=== PATIENT | male | born 1975 ===

== ENCOUNTER 2021-08-08 19:43 | Emergency (ER) | payer SELFPAY ==
--- NOTE | 2021-08-08 20:24 | Emergency Department Report ---
HPI - General Chief Complaint: Alcohol Time Seen by Provider: 08/08/21 20:11 - HPI HPI: Room 40 The patient is a 46-year-old male present with a chief complaint of alcohol intoxication. The patient lives in [place] and states he [place] the airport [place] flight when he was refused entry secondary to being intoxicated. Patient was subsequently brought to the ED. Patient denies any physical complaints but just states that he misplaced his glasses. ED Past Medical Hx - Past Medical History Previous Medical History?: No - Surgical History Additional Surgical History: Right shoulder - Family History Family history: no significant - Social History Smoking Status: Never Smoker Substance Use Type: None (Denies illicit drug use), Alcohol (4 drinks daily) ED Review of Systems ROS: Stated complaint: ETOH Other details as noted in HPI Constitutional: no symptoms reported Eyes: denies: eye pain ENT: denies: throat pain Respiratory: no symptoms reported Cardiovascular: denies: chest pain Endocrine: no symptoms reported Gastrointestinal: denies: abdominal pain Genitourinary: denies: dysuria Musculoskeletal: denies: back pain Neurological: denies: headache Physical Exam - Physical Exam Physical Exam: GENERAL: The patient is well-developed well-nourished male lying on stretcher not appearing to be in acute distress. [] HEENT: Normocephalic. Atraumatic. Extraocular motions are intact. Patient has moist mucous membranes. NECK: Supple. Trachea midline CHEST/LUNGS: Clear to auscultation. There is no respiratory distress noted. HEART/CARDIOVASCULAR: Regular. There is no tachycardia. There is no gallop rub or murmur. ABDOMEN: Abdomen is soft, nontender. Patient has normal bowel sounds. There is no abdominal distention. SKIN: There is no rash. There is no edema. There is no diaphoresis. NEURO: The patient is awake, alert, and oriented. The patient is cooperative. The patient has no focal neurologic deficits. The patient has normal speech. GCS 15 MUSCULOSKELETAL: There is no evidence of acute injury. ED Medical Decision Making - Lab Data Result diagrams: 08/08/21 20:27 08/08/21 20:27 Laboratory Tests 08/08/21 08/08/21 08/08/21 20:27 20:27 20:27 WBC 5.2 RBC 5.34 H Hgb 17.0 H Hct 50.2 H MCV 94 MCH 32 MCHC 34 RDW 15.8 H Plt Count 111 L Lymph % (Auto) 27.3 [place] % (Auto) 8.3 H Eos % (Auto) 0.3 Baso % (Auto) 1.0 Lymph # (Auto) 1.4 [place] # (Auto) 0.4 Eos # (Auto) 0.0 Baso # (Auto) 0.1 Seg Neutrophils % 63.1 Seg Neutrophils # 3.3 Sodium 141 Potassium 3.9 Chloride 97.1 L Carbon Dioxide 26 Anion Gap 22 BUN 6 L Creatinine 1.1 Estimated GFR > 60 BUN/Creatinine Ratio 5 Glucose 137 H Calcium 8.7 Plasma/Serum Alcohol 0.51 H - Differential Diagnosis Alcohol intoxication Critical care attestation.: If time is entered above; I have spent that time in minutes in the direct care of this critically ill patient, excluding procedure time. ED Disposition Clinical Impression: Alcohol abuse Disposition: 07 LEFT AGAINST MEDICAL ADVICE Is pt being admited?: No Does the pt Need Aspirin: No Condition: Stable Referrals: PRIMARY CARE, [Primary Care Provider] - 3-5 Days
[2021-08-08 20:47] LABS: Basophils # (Auto) 0.1 K/mm3 (0.0-0.1); Eosinophils % (Auto) 0.3 % (0.0-4.3); Hematocrit 50.2 % (35.5-45.6); Lymphocytes # (Auto) 1.4 K/mm3 (1.2-5.4); Lymphocytes % (Auto) 27.3 % (13.4-35.0); Mean Corpuscular HGB Conc 34 % (32-34); Mean Corpuscular Volume 94 fl (84-94); Monocytes # (Auto) 0.4 K/mm3 (0.0-0.8); Monocytes % (Auto) 8.3 % (0.0-7.3); Platelet Count 111 K/mm3 (140-440); Red Blood Count 5.34 M/mm3 (3.65-5.03); Red Cell Distribution Width 15.8 % (13.2-15.2)
[2021-08-08] MEDS ORDERED: MAGNESIUM SULFATE 2 GM/50 ML BAG IV ONE (20:51)
[2021-08-08] MEDS ORDERED: SODIUM CHLORIDE 0.9% 1000 ML 1,000 ML IV ONE (20:52)
[2021-08-08 21:06] LABS: BUN/Creatinine Ratio 5; Blood Urea Nitrogen 6 mg/dL (9-20); Calcium 8.7 mg/dL (8.4-10.2); Hemolysis Index 9
[2021-08-08] MEDS ORDERED: THIAMINE 100 MG, FOLIC ACID 1 MG, MULTIPLE VITAMIN INJ, ADULT 10 ML in SODIUM CHLORIDE ... IV ONE (22:00)
[2021-08-09] MEDS ORDERED: LORazepam 2 MG/ML VIAL IV PRN ×3 (02:14)
[2021-08-09 07:22] VITALS: BP 141/88
== END 2021-08-09 10:59 | disposition left against medical advice (07) ==
LOC: ED 19:43
DX: F10.129 Alcohol abuse with intoxication, unspecified (principal); Y90.9 Presence of alcohol in blood, level not specified
CPT/HCPCS: 36415; 80048; 85025; 96365; 99284; J3411; J3475; J7030; 80320; G0480